=== PATIENT | male | born 1970 | race Caucasian/White ===

== ENCOUNTER → 2020-12-23 | Day surgery (SDC) | payer OTHER ==
[~2020-12-23] VITALS: Ht 177.8 cm; Wt 93.4 kg
[~2020-12-23] MED LIST: COZAAR50 MG PO; HCTZ12.5 MG PO; MIRALAX17 GM PO; PERCOCET 5-3251 EACH PO
[2020-12-23 11:07] LABS: BUN/CREAT RATIO (CALC) 13.8 RATIO; CREATININE 1.09 mg/dL (0.67-1.17); POTASSIUM 3.7 mmol/L (3.5-5.1)
== END | disposition home or self-care (01) ==
LOC: FAS 12-02 11:00
PROVIDERS: Anesthesiology
DX: K43.9 Ventral hernia without obstruction or gangrene (principal); E78.5 Hyperlipidemia, unspecified; I10 Essential (primary) hypertension; Z79.899 Other long term (current) drug therapy
CPT/HCPCS: 36415; 80048; C1781; J0690; J1100; J1885; J2250; J2405; J2704; J3010; J7120